=== PATIENT | male | born 1985 | race Caucasian/White ===

== ENCOUNTER → 2022-12-18 | Outpatient (CLI) | payer OTHER, MEDICAID, SELFPAY ==
--- NOTE | 2022-12-18 13:03 | NEURO ---
NCS and/or EMG Patient Report Ordering Doctor: Ryan Oquendo DATE OF SERVICE: 12/18/22 Mati presents for electrodiagnostic testing of the right upper limb. He reports numbness and tingling in the right hand. He reports neck pain radiating into the right arm. Electrodiagnostic findings: Right median motor nerve demonstrates normal distal latency, amplitude and conduction velocity. Normal right ulnar motor response. Normal sensory responses. On needle EMG, all muscles tested in the right upper limb showed no evidence of denervation with normal motor unit action potentials. Electrodiagnostic assessment: This is a normal electrodiagnostic study of the right upper limb. There is no electrodiagnostic evidence for peripheral neuropathy, including carpal tunnel syndrome. There is no electrodiagnostic evidence for cervical radiculopathy.
== END | disposition home or self-care (01) ==
LOC: PSN 09:58
PROVIDERS: PCP Family Medicine; Visit Provider Orthopaedic Surgery
DX: R20.2 Paresthesia of skin (principal); M47.22 Other spondylosis with radiculopathy, cervical region
CPT/HCPCS: 95886; 95910